=== PATIENT | female | born 1960 | race Caucasian/White ===

== ENCOUNTER 2016-05-24 09:27 | Emergency (ER) | payer MEDICARE ==
[2016-05-24] MEDS ORDERED: Al Hydrox/Mg Hydrox/Simet LIQ* 30 ML UDC PO ONE (10:26)
[2016-05-24] MEDS: NS 0.9% 1000 ML* 2,000 ML IV ONE (10:41)
--- NOTE | 2016-05-24 10:47 | ED ---
Abdominal Pain/Female - HPI Summary HPI Summary: Patient arrives to ED with CC of rectal bleeding, diarrhea and bloating x 3 days. States diarrhea began on after returning home from a trip within [place]. She states she may have eaten some rare hamburger. The next day she noticed the diarrhea had blood mixed with it and this morning states no diarrhea was present but what looked like mucous blood clots were passing. She also states she has been sightly nauseous and dry heaving with 1X episode of vomiting bile yesterday and feels dehydrated. Denies blood thinners. Denies abdominal pain but notes some diffuse cramping. Cramping does not improve or worsen after BM. Cramping does not radiate. Feels generalized weakness. Denies any PMHx of IBD or IBS. Last colonoscopy was normal and next colonoscopy appt is for next year. PMHx of stroke which she has fully recovered. Denies other health problems and exercises regularly. Family hx positive for paternal aunt colon cancer. - History of Current Complaint Chief Complaint: EDAbdPain Stated Complaint: VOMITING/DIARRHEA/ABD CRAMPING Time Seen by Provider: 05/24/16 09:56 Hx Obtained From: Patient ?: No Onset/Duration: Gradual Onset Timing: Intermittent Episode Lasting - several minutes Severity Initially: Moderate Severity Currently: Moderate Pain Intensity: 6 Pain Scale Used: 0-10 Numeric Location: Diffuse - more prominent at RLQ, Discrete At: RLQ Radiates: No Character: Dull, Other: - tenesmus Aggravating Factor(s): Nothing Alleviating Factor(s): Bowel Movement Allergies/Adverse Reactions: Allergies Allergy/AdvReac Type Severity Reaction Status Date / Time SULFA Allergy Facial Uncoded 05/24/16 09:55 Redness/Flushing PMH/Surg Hx/FS Hx/Imm Hx Previously Healthy: Yes - stroke history but fully recovered per patient Infectious Disease History: No Infectious Disease History: Denies: Traveled Outside the [place] in Last 30 Days - Social History Occupation: Employed Full-time Lives: With Family Alcohol Use: None Hx Substance Use: No Substance Use Type: Reports: None Hx Tobacco Use: No Do You Chew or Dip Tobacco: No Have You Chewed or Dipped Tobacco in the LAST YEAR: No Review of Systems Positive: Fatigue Eyes: Negative Cardiovascular: Negative Respiratory: Negative Positive: Abdominal Pain - RLQ more prominent, but diffuse, Diarrhea - bloody Genitourinary: Negative Positive: no symptoms reported, see HPI Musculoskeletal: Negative Skin: Negative Neurological: Negative Psychological: Normal All Other Systems Reviewed And Are Negative: Yes Physical Exam Triage Information Reviewed: Yes Vital Signs On Initial Exam: Initial Vitals Temp Pulse Resp BP Pulse Ox 98.8 F 78 15 113/85 99 05/24/16 09:56 05/24/16 09:56 05/24/16 09:56 05/24/16 09:56 05/24/16 09:56 Vital Signs Reviewed: Yes Appearance: Positive: Well-Appearing, No Pain Distress, Well-Nourished Skin: Positive: Warm, Skin Color Reflects Adequate Perfusion Eyes: Positive: Normal, EOMI Neck: Positive: Supple, Nontender Respiratory/Lung Sounds: Positive: Breath Sounds Present Cardiovascular: Positive: Normal Abdomen Description: Positive: No Organomegaly, Soft, Other: - no cva tenderness , tenderness to deep palpation over RLQ. no fever present. Bowel Sounds: Positive: Present Musculoskeletal: Positive: Normal, Strength/ROM Intact Neurological: Positive: Normal Psychiatric: Positive: Normal Diagnostics - Vital Signs Vital Signs Temp Pulse Resp BP Pulse Ox 05/24/16 09:56 98.8 F 78 15 113/85 99 - Laboratory Result Diagrams: 05/24/16 14:19 05/24/16 10:45 Lab Statement: Any lab studies that have been ordered have been reviewed, and results considered in the medical decision making process. Re-Evaluation - Re-Evaluation First Eval Change: Improved - patient feeling better after fluids Abdominal Pain Fem Course/Dx - Course Course Of Treatment: Labs obtained. Maalox given d/t feeling bloated. Fluids recusitation. Patient unable to provide stool sample, so home kit was given with instructions. Follow up labs showed only a slight drop in H/H, but no more bleeding occurred in 6 hours patient was in ED. Patient feeling better and denies light headedness or dizziness. No CT d/t labwork and recent history of eating rare meat. Patient agrees to follow up with PCP and for colonoscopy. Return precautions for bleeding given. - Diagnoses Differential Diagnosis: Positive: Diverticulitis, Peptic Ulcer Disease Provider Diagnoses: Rectal bleeding Discharge - Discharge Plan Condition: Stable Disposition: HOME Patient Education Materials: Rectal Bleeding (ED) Referrals: No Primary Care Phys,NOPCP [Primary Care Provider] - Additional Instructions: Follow up with your PCP. Drop off stool cultures at the lab. If you notice worsening bleeding, feelings of fatigue or dizziness, come back to ED. Colonoscopy is recommended soon.
[2016-05-24 11:03] LABS: Hematocrit 43 % (35-47); Hemoglobin 14.2 g/dl (12.0-16.0); Mean Corpuscular HGB Conc 33 g/dl (31-36); Mean Corpuscular Hemoglobin 31 pg (27-31); Mean Corpuscular Volume 93 fL (80-97); Mean Platelet Volume 6 um3 (7.4-10.4); Red Blood Count 4.58 10^6/ul (4.0-5.4); Red Cell Distribution Width 14 % (10.5-15); White Blood Count 6.2 10^3/ul (3.5-10.8)
[2016-05-24 11:09] LABS: Urine Bilirubin Negative (Negative); Urine Glucose Negative (Negative); Urine Nitrite Negative (Negative)
[2016-05-24 11:19] LABS: Albumin 4.1 g/dL (3.2-5.2); BUN/Creatinine Ratio 9.4 (8-20); C Reactive Protein 4.35 mg/L (< 5.00); Calcium 9.3 mg/dL (8.6-10.3); Direct Bilirubin 0.1 mg/dL (0.03-0.18); EGFR African American 89.6 (>60); EGFR Non-African American 69.7 (>60); Globulin 2.6 g/dL (2-4); Indirect Bilirubin 0.5 mg/dL (0.3-1.0); Potassium 3.9 mmol/L (3.5-5.0); Total Bilirubin 0.6 mg/dL (0.2-1.0); Total Protein 6.7 g/dL (6.4-8.9)
[2016-05-24 14:27] LABS: Hematocrit 40 % (35-47); Hemoglobin 13.4 g/dl (12.0-16.0); Mean Corpuscular HGB Conc 34 g/dl (31-36); Mean Corpuscular Hemoglobin 31 pg (27-31); Mean Corpuscular Volume 93 fL (80-97); Mean Platelet Volume 6 um3 (7.4-10.4); Red Blood Count 4.27 10^6/ul (4.0-5.4); Red Cell Distribution Width 14 % (10.5-15); White Blood Count 6.7 10^3/ul (3.5-10.8)
[2016-05-24 14:54] VITALS: BP 134/75
== END 2016-05-24 15:20 | disposition home or self-care (01) ==
LOC: ED 09:27
DX: R10.31 Right lower quadrant pain (principal); R19.7 Diarrhea, unspecified; K62.5 Hemorrhage of anus and rectum
CPT/HCPCS: 36415; 80053; 81003; 82248; 83690; 85025; 85610; 85730; 86140; 96360; 99283; A9270-GY

== ENCOUNTER → 2016-08-22 15:33 | Emergency (ER) | payer MEDICARE, MEDICAID ==
[~2016-08-22 15:33] MED LIST: LORazepam INJ* 2 MG/ML 1 ML VIAL IV ONE
[2016-08-22 17:59] LABS: Hematocrit 45 % (35-47); Hemoglobin 15.1 g/dl (12.0-16.0); Mean Corpuscular HGB Conc 33 g/dl (31-36); Mean Corpuscular Hemoglobin 31 pg (27-31); Mean Corpuscular Volume 92 fL (80-97); Mean Platelet Volume 7 um3 (7.4-10.4); Red Blood Count 4.92 10^6/ul (4.0-5.4); Red Cell Distribution Width 13 % (10.5-15)
[2016-08-22 18:01] LABS: Urine Bilirubin Negative (Negative); Urine Glucose Negative (Negative); Urine Nitrite Negative (Negative)
[2016-08-22] MEDS: NS 0.9% 1000 ML* 2,000 ML IV ONE ×2 (18:03→18:04)
[2016-08-22 18:12] LABS: Benzodiazepine Urine Screen None Detected (None Detect)
[2016-08-22 18:13] LABS: ALT 16 U/L (7-52); AST 21 U/L (13-39); Albumin 4.5 g/dL (3.2-5.2); Alkaline Phosphatase 55 U/L (34-104); Anion Gap 9 mmol/L (2-11); BUN/Creatinine Ratio 13.3 (8-20); Blood Urea Nitrogen 11 mg/dL (6-24); CO2 Carbon Dioxide 27 mmol/L (22-32); Calcium 9.5 mg/dL (8.6-10.3); Chloride 104 mmol/L (101-111); Creatine Kinase 74 U/L (10-223); EGFR African American 92.1 (>60); EGFR Non-African American 71.6 (>60); Globulin 2.8 g/dL (2-4); Glucose 83 mg/dL (70-100); Magnesium 2.3 mg/dL (1.9-2.7); Potassium 4.1 mmol/L (3.5-5.0); Sodium 140 mmol/L (133-145); Total Protein 7.3 g/dL (6.4-8.9)
[2016-08-22 18:42] LABS: Acetaminophen < 15 mcg/mL; Alcohol 199 mg/dL (<10); Salicylate < 2.50 mg/dL (<30)
[2016-08-22 18:48] LABS: TSH (Thyroid Stimulating Horm) 0.73 mcIU/mL (0.34-5.60)
--- NOTE | 2016-08-22 18:53 | ED ---
Jose Alberto Madera Auryana, scribed for Shay Hodge MD on 08/22/16 at 1818 . Substance Abuse/Use - HPI Summary HPI Summary: 56 year old female presents with detox request s/p relapse. She reports she was recently sober for 3 months and relapse yesterday due to some increased stress and "didn't use tools". She states that she had 4 bottles of wine and some tequila starting yesterday and into today. She states she did eat today but a while ago. She denies hallucinations or hearing voices. PMHx is significant for depression (no medications), stroke (residual right sided weakness), ETOH abuse- withdrawal in past- rehab x2. She denies any recreational drugs and tobacco use. - History Of Current Complaint Chief Complaint: EDDetoxRequest Stated Complaint: ETOH WITHDRAWL Time Seen by Provider: 08/22/16 16:53 Hx Obtained From: Patient Hx Last Menstrual Period: N/A ?: No Onset/Duration of Drug/ETOH Abuse: Days - YESTERDAY 1 Ingestion History: Type/Name Of Drug - etoh, Amount Ingested - 4 bottles wine and some tequila Overdose Characteristics: Oral Timing Of Abuse: Binge Use Severity Initially: Moderate Severity Currently: Moderate Character: Depressed, Other - upset Aggravating Factor(s): Recent Stress Associated Signs And Symptoms: Intentional Ingestion Related Hx: Recent Stressors, Drug/Alcohol Last Used @ - states [employer] - Allergies/Home Medications Allergies/Adverse Reactions: Allergies Allergy/AdvReac Type Severity Reaction Status Date / Time SULFA Allergy Facial Uncoded 05/24/16 09:55 Redness/Flushing PMH/Surg Hx/FS Hx/Imm Hx Neurological History: Reports: 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 Psychiatric History: Reports: Hx Depression, Hx Substance Abuse - ETOH Infectious Disease History: Yes Infectious Disease History: Denies: Traveled Outside the [place] in Last 30 Days - Social History Occupation: Disabled Lives: Alone Alcohol Use: binge drinking Alcohol Amount: pt relapsed last night,"I've been drinking for 24 hours" Hx Substance Use: No Substance Use Type: Reports: None Hx Tobacco Use: No Smoking Status (MU): Never Smoked Tobacco Review of Systems Positive: Other - alcohol detox . Negative: Fever Eyes: Negative ENT: Negative Cardiovascular: Negative Respiratory: Negative Gastrointestinal: Negative Genitourinary: Negative Musculoskeletal: Negative Skin: Negative Neurological: Negative Psychological: Normal All Other Systems Reviewed And Are Negative: Yes Physical Exam - Summary Physical Exam Summary: The patient is well-nourished in no acute distress and in no acute pain. Does not smell of alcohol. The skin is warm and dry and skin color reflects adequate perfusion. HEENT: The head is normocephalic and atraumatic. The pupils are equal and reactive. The conjunctivae are clear and without drainage. Nares are patent and without drainage. Mouth reveals moist mucous membranes and the throat is without erythema and exudate. The external ears are intact. The ear canals are patent and without drainage. The tympanic membranes are intact. Neck is supple with full range of motion and non-tender. There are no carotid bruits. There is no neck vein distension. Respiratory: Chest is non-tender. Lungs are clear to auscultation and breath sounds are symmetrical and equal. Cardiovascular: Hear is regular rate and rhythm. There is no murmur or rub auscultated. There is no peripheral edema and pulses are symmetrical and equal. Abdomen: The abdomen is soft and non-tender. There are normal bowel sounds heard in all four quadrants and there is no organomegaly palpated. Musculoskeletal: There is no back pain noted. Extremities are non-tender with full range of motion. There is good capillary refill. There is no peripheral edema or calf tenderness elicited. Neurological: Patient is alert and oriented to person, place and time. The patient has symmetrical motor strength in all four extremities. Cranial nerves are grossly intact. Deep tendon reflexes are symmetrical and equal in all four extremities. Psychiatric: The patient has an appropriate affect and does not exhibit any anxiety or depression. Triage Information Reviewed: Yes Vital Signs On Initial Exam: Initial Vitals Temp Pulse Resp BP Pulse Ox 98.3 F 97 20 119/76 97 08/22/16 15:41 08/22/16 15:41 08/22/16 15:41 08/22/16 15:41 08/22/16 15:41 Vital Signs Reviewed: Yes - [place] Coma Scale Coma Scale Total: 15 Diagnostics - Vital Signs Vital Signs Temp Pulse Resp BP Pulse Ox 08/22/16 16:33 98 F 92 20 109/64 95 08/22/16 16:30 83 16 115/70 94 08/22/16 16:22 80 94 08/22/16 16:20 109/64 05/12/17 15:41 98.3 F 97 20 119/76 97 - Laboratory Lab Results: Lab Results 08/22/16 08/22/16 08/22/16 Range/Units 17:45 17:45 17:45 WBC 7.0 (3.5-10.8) 10^3/ul RBC 4.92 (4.0-5.4) 10^6/ul Hgb 15.1 (12.0-16.0) g/dl Hct 45 (35-47) % MCV 92 (80-97) fL MCH 31 (27-31) pg MCHC 33 (31-36) g/dl RDW 13 (10.5-15) % Plt Count 377 (150-450) 10^3/ul MPV 7 L (7.4-10.4) um3 Neut % (Auto) 37.8 L (38-83) % Lymph % (Auto) 48.3 H (25-47) % [place] % (Auto) 7.8 (1-9) % Eos % (Auto) 5.1 (0-6) % Baso % (Auto) 1.0 (0-2) % Absolute Neuts (auto) 2.6 (1.5-7.7) 10^3/ul Absolute Lymphs (auto) 3.4 (1.0-4.8) 10^3/ul Absolute Monos (auto) 0.5 (0-0.8) 10^3/ul Absolute Eos (auto) 0.4 (0-0.6) 10^3/ul Absolute Basos (auto) 0.1 (0-0.2) 10^3/ul Absolute Nucleated RBC 0.01 10^3/ul Nucleated RBC % 0.2 Sodium 140 (133-145) mmol/L Potassium 4.1 (3.5-5.0) mmol/L Chloride 104 (101-111) mmol/L Carbon Dioxide 27 (22-32) mmol/L Anion Gap 9 (2-11) mmol/L BUN 11 (6-24) mg/dL Creatinine 0.83 (0.51-0.95) mg/dL Est GFR ( Amer) 92.1 (>60) Est GFR (Non-Af Amer) 71.6 (>60) BUN/Creatinine Ratio 13.3 (8-20) Glucose 83 (70-100) mg/dL Lactic Acid (0.5-2.0) mmol/L Calcium 9.5 (8.6-10.3) mg/dL Magnesium 2.3 (1.9-2.7) mg/dL Total Bilirubin 0.30 (0.2-1.0) mg/dL AST 21 (13-39) U/L ALT 16 (7-52) U/L Alkaline Phosphatase 55 (34-104) U/L Total Creatine Kinase 74 (10-223) U/L Total Protein 7.3 (6.4-8.9) g/dL Albumin 4.5 (3.2-5.2) g/dL Globulin 2.8 (2-4) g/dL Albumin/Globulin Ratio 1.6 (1-3) TSH 0.73 (0.34-5.60) mcIU/mL Urine Color Straw Urine Appearance Clear Urine pH 6.0 (5-9) Ur Specific [place] 1.005 L (1.010-1.030) Urine Protein Negative (Negative) Urine Ketones Negative (Negative) Urine Blood Negative (Negative) Urine Nitrate Negative (Negative) Urine Bilirubin Negative (Negative) Urine Urobilinogen Negative (Negative) Ur Leukocyte Esterase Negative (Negative) Urine Glucose Negative (Negative) Salicylates < 2.50 (<30) mg/dL Urine Opiates Screen (None Detect) Acetaminophen < 15 mcg/mL Ur Barbiturates Screen (None Detect) Ur Phencyclidine Scrn (None Detect) Ur Amphetamines Screen (None Detect) U Benzodiazepines Scrn (None Detect) Urine Cocaine Screen (None Detect) U Cannabinoids Screen (None Detect) Serum Alcohol 199 H (<10) mg/dL 08/22/16 08/22/16 Range/Units 17:45 17:45 WBC (3.5-10.8) 10^3/ul RBC (4.0-5.4) 10^6/ul Hgb (12.0-16.0) g/dl Hct (35-47) % MCV (80-97) fL MCH (27-31) pg MCHC (31-36) g/dl RDW (10.5-15) % Plt Count (150-450) 10^3/ul MPV (7.4-10.4) um3 Neut % (Auto) (38-83) % Lymph % (Auto) (25-47) % [place] % (Auto) (1-9) % Eos % (Auto) (0-6) % Baso % (Auto) (0-2) % Absolute Neuts (auto) (1.5-7.7) 10^3/ul Absolute Lymphs (auto) (1.0-4.8) 10^3/ul Absolute Monos (auto) (0-0.8) 10^3/ul Absolute Eos (auto) (0-0.6) 10^3/ul Absolute Basos (auto) (0-0.2) 10^3/ul Absolute Nucleated RBC 10^3/ul Nucleated RBC % Sodium (133-145) mmol/L Potassium (3.5-5.0) mmol/L Chloride (101-111) mmol/L Carbon Dioxide (22-32) mmol/L Anion Gap (2-11) mmol/L BUN (6-24) mg/dL Creatinine (0.51-0.95) mg/dL Est GFR ( Amer) (>60) Est GFR (Non-Af Amer) (>60) BUN/Creatinine Ratio (8-20) Glucose (70-100) mg/dL Lactic Acid 1.2 (0.5-2.0) mmol/L Calcium (8.6-10.3) mg/dL Magnesium (1.9-2.7) mg/dL Total Bilirubin (0.2-1.0) mg/dL AST (13-39) U/L ALT (7-52) U/L Alkaline Phosphatase (34-104) U/L Total Creatine Kinase (10-223) U/L Total Protein (6.4-8.9) g/dL Albumin (3.2-5.2) g/dL Globulin (2-4) g/dL Albumin/Globulin Ratio (1-3) TSH (0.34-5.60) mcIU/mL Urine Color Urine Appearance Urine pH (5-9) Ur Specific [place] (1.010-1.030) Urine Protein (Negative) Urine Ketones (Negative) Urine Blood (Negative) Urine Nitrate (Negative) Urine Bilirubin (Negative) Urine Urobilinogen (Negative) Ur Leukocyte Esterase (Negative) Urine Glucose (Negative) Salicylates (<30) mg/dL Urine Opiates Screen None detected (None Detect) Acetaminophen mcg/mL Ur Barbiturates Screen None detected (None Detect) Ur Phencyclidine Scrn None detected (None Detect) Ur Amphetamines Screen None detected (None Detect) U Benzodiazepines Scrn None detected (None Detect) Urine Cocaine Screen None detected (None Detect) U Cannabinoids Screen None detected (None Detect) Serum Alcohol (<10) mg/dL Result Diagrams: 08/22/16 17:45 08/22/16 17:45 Lab Statement: Any lab studies that have been ordered have been reviewed, and results considered in the medical decision making process. Course/Dx - Course Assessment/Plan: 56 year old female presents with detox request s/p relapse. She reports she was recently sober for 3 months and relapse yesterday due to some increased stress and "didn't use tools". She states that she had 4 bottles of wine and some tequila starting yesterday and into today. She denies hallucinations or hearing voices. PMHx is significant for depression (no medications), stroke (residual right sided weakness), ETOH abuse-withdrawal in past- rehab x2. LABS - UNREMARKABLE. SERUM ETOH - 199. WILL SIGN OUT FROM DR. HODGE TO DR. SELBY AT 19:00. DX: ACUTE ETOH INTOXICATION - Diagnoses Differential Diagnosis/HQI/PQRI: Positive: Alcohol Abuse, Alcohol Withdrawal, Depression, Metabolic Disorder Provider Diagnoses: Acute alcohol intoxication Discharge - Discharge Plan Condition: Stable Disposition: HOME Discharge Disposition Comment: SIGNOUT FROM DR. HODGE TO DR. SELBY AT 19:00 Patient Education Materials: Alcohol Intoxication (ED) Referrals: Jesús Ngo MD [Primary Care Provider] - 3 Days [facility] [Outside] [facility] [Outside] The documentation as recorded by the Jose Alberto calderon Auryana accurately reflects the service I personally performed and the decisions made by me, Shay Hodge MD.
[2016-08-22 23:14] VITALS: BP 109/67
== END | disposition home or self-care (01) ==
LOC: ED 15:33
DX: F10.129 Alcohol abuse with intoxication, unspecified (principal); Y90.6 Blood alcohol level of 120-199 mg/100 ml; Z88.2 Allergy status to sulfonamides
CPT/HCPCS: 36415; 80053; 80307; 80320; 80329; 81003; 82550; 83605; 83735; 84443; 85025; 96360; 96374; 99283; G0480; J2060

== ENCOUNTER 2017-06-13 20:43 | Emergency (ER) | payer MEDICARE, MEDICAID ==
[2017-06-13] MEDS ORDERED: Ondansetron INJ* 2 MG/ML VIAL IV ONE (21:21)
[2017-06-13] MEDS ORDERED: Famotidine TAB* 20 MG PO ONE (21:21)
[2017-06-13 22:11] LABS: ABS Basophils 0.1 10^3/ul (0-0.2); ABS Eosinophils 0.1 10^3/ul (0-0.6); ABS Lymphocytes 1.9 10^3/ul (1.0-4.8); ABS Monocytes 0.4 10^3/ul (0-0.8); ABS Neutrophils 2.7 10^3/ul (1.5-7.7); ABS Nucleated RBC 0 10^3/ul; Eosinophil % 1.8 % (0-6); Hematocrit 45 % (35-47); Hemoglobin 14.7 g/dl (12.0-16.0); Lymphocyte % 37.4 % (25-47); Mean Corpuscular HGB Conc 33 g/dl (31-36); Mean Corpuscular Hemoglobin 30 pg (27-31); Mean Corpuscular Volume 92 fL (80-97); Mean Platelet Volume 6 um3 (7.4-10.4); Nucleated Red Blood Cells % 0.1; Platelet Count 323 10^3/ul (150-450); Red Blood Count 4.84 10^6/ul (4.0-5.4); Red Cell Distribution Width 14 % (10.5-15); White Blood Count 5.2 10^3/ul (3.5-10.8)
[2017-06-13 22:15] LABS: EGFR Non-African American 66.7 (>60)
[2017-06-14 04:38] VITALS: BP 108/64
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
== END 2017-06-14 04:29 | disposition home or self-care (01) ==
LOC: ED 20:43
DX: F10.229 Alcohol dependence with intoxication, unspecified (principal); Y90.8 Blood alcohol level of 240 mg/100 ml or more; R11.0 Nausea
CPT/HCPCS: 36415; 80053; 80320; 85025; 96374; 99282; G0480

== ENCOUNTER 2017-12-27 18:45 | Emergency (ER) | payer MEDICARE, MEDICAID ==
[2017-12-27 18:54] VITALS: BP 118/78
--- NOTE | 2017-12-27 19:13 | ED ---
Substance Abuse/Use - HPI Summary HPI Summary: This patient is a 57 year old F presenting to [facility] requesting etoh detox. Pt states she recently relapsed after 6 months of sobriety and has drank just minutes before arriving to the ED. Pt states she is an alcoholic and she is unable to stop drinking and has been in the ED before. Pt states that when the alcohol has left her system she needs to drink more so she is drinking every couple hours. She has been drinking every day for the last month and states she is unable to cope with her feelings. When she stops drinking she becomes agitated and confused. Pt states her last drink was a 9% alcoholic beer and it was at 1800. Hx CVA in 2011. She takes gabapentin and 325 ASA. - History Of Current Complaint Chief Complaint: EDDetoxRequest Stated Complaint: DETOX REQUEST Hx Obtained From: Patient Hx Last Menstrual Period: N/A Onset/Duration of Drug/ETOH Abuse: Minutes Ingestion History: Type/Name Of Drug - etoh Overdose Characteristics: Oral Timing Of Abuse: Recent Cessation For A Period Of Severity Initially: Moderate Severity Currently: Moderate Aggravating Factor(s): Other Associated Signs And Symptoms: Negative - fever - Allergies/Home Medications Allergies/Adverse Reactions: Allergies Allergy/AdvReac Type Severity Reaction Status Date / Time SULFA Allergy Facial Uncoded 12/27/17 18:54 Redness/Flushing Home Medications: Home Medications NK [No Home Medications Reported] 12/27/17 [History Confirmed 12/27/17] PMH/Surg Hx/FS Hx/Imm Hx Endocrine/Hematology History: Denies: Hx Diabetes Cardiovascular History: Denies: Hx Hypertension, Hx Pacemaker/ICD Respiratory History: Denies: Hx Asthma Musculoskeletal History: Denies: Hx Osteoporosis Sensory History: Denies: Hx Hearing Aid Neurological History: Reports: Hx CVA, 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 Psychiatric History: Reports: Hx Depression, Hx Substance Abuse - ETOH Denies: Hx Panic Disorder - Surgical History Surgery Procedure, Year, and Place: TONSILLECTOMY AND ADENOIDECTOMY Infectious Disease History: No Infectious Disease History: Denies: Traveled Outside the [place] in Last 30 Days - Family History Known Family History: Positive: Other Family History: No breast CA - Social History Alcohol Use: Daily Alcohol Amount: pt relapsed last night,"I've been drinking for 24 hours" Hx Substance Use: No Substance Use Type: Reports: None Hx Tobacco Use: No Smoking Status (MU): Never Smoked Tobacco Review of Systems Positive: Other - Intoxicated. Negative: Fever Positive: Other - agitated and confused when she stops drinking All Other Systems Reviewed And Are Negative: Yes Physical Exam - Summary Physical Exam Summary: Appearance: Well-appearing, Well-nourished, lying in bed comfortably Skin: Warm, dry, no obvious rash Eyes: sclera anicteric, no conjunctival pallor ENT: mucous membranes moist, pharynx appears normal Neck: Supple, nontender Respiratory: Clear to auscultation, no signs of respiratory distress Cardiovascular: Normal S1, S2. No murmurs. Normal distal pulses in tibial and radial bilaterally. Abdomen: Soft, nontender, normal active bowel sounds present Musculoskeletal: Normal, Strength/ROM Intact Neurological: A&Ox3, awake and alert, mentation is normal, speech is fluent and appropriate Psychiatric: affect is normal, does not appear anxious or depressed Triage Information Reviewed: Yes Vital Signs On Initial Exam: Initial Vitals Temp Pulse Resp BP Pulse Ox 98.5 F 80 16 118/78 94 12/27/17 18:53 12/27/17 18:53 12/27/17 18:53 12/27/17 18:53 12/27/17 18:53 Vital Signs Reviewed: Yes Diagnostics - Vital Signs Vital Signs Temp Pulse Resp BP Pulse Ox 12/27/17 18:53 98.5 F 80 16 118/78 94 - Laboratory Result Diagrams: 12/27/17 19:13 12/27/17 19:13 Lab Statement: Any lab studies that have been ordered have been reviewed, and results considered in the medical decision making process. Re-Evaluation - Re-Evaluation First Eval Re-Evaluation Time: 01:35 Change: Unchanged Comment: As the patient was about to be discharged it became apparent that she has eloped Course/Dx - Course Assessment/Plan: This patient is a 57 year old F presenting to [facility] requesting etoh detox. Pt states she recently relapsed after 6 months of sobriety and has drank just minutes before arriving to the ED. Pt states she is an alcoholic and she is unable to stop drinking and has been in the ED before. Pt states that when the alcohol has left her system she needs to drink more so she is drinking every couple hours. She has been drinking every day for the last month and states she is unable to cope with her feelings. When she stops drinking she becomes agitated and confused. Pt states her last drink was a 9% alcoholic beer and it was at 1800. Hx CVA in 2012. She takes gabapentin and 325 ASA. Blood work obtained, patient had a JENN of 200. Pt eloped from the ED - Diagnoses Provider Diagnoses: Eloped from emergency department Discharge - Sign-Out/Discharge Documenting (check all that apply): Patient Departure - eloped - Discharge Plan Disposition: ELOPEMENT Patient Education Materials: Abuse of Alcohol (ED) Referrals: Jesús Ngo MD [Primary Care Provider] - - Attestation Statements Document Initiated by Scribe: Yes Documenting Scribe: Loki Monteiro Provider For Whom Scribe is Documenting (Include Credential): Joselito Kinsey MD Scribe Attestation: Loki Madera , scribed for Joselito Kinsey MD on 12/28/17 at 0250.
[2017-12-27 19:21] LABS: ABS Basophils 0.1 10^3/ul (0-0.2); ABS Eosinophils 0.3 10^3/ul (0-0.6); ABS Lymphocytes 2.9 10^3/ul (1.0-4.8); ABS Monocytes 0.6 10^3/ul (0-0.8); ABS Neutrophils 3.2 10^3/ul (1.5-7.7); ABS Nucleated RBC 0 10^3/ul; Eosinophil % 3.8 % (0-6); Hematocrit 41 % (35-47); Hemoglobin 14.4 g/dl (12.0-16.0); Lymphocyte % 40.6 % (25-47); Mean Corpuscular HGB Conc 35 g/dl (31-36); Mean Corpuscular Hemoglobin 32 pg (27-31); Mean Corpuscular Volume 92 fL (80-97); Mean Platelet Volume 5.7 um3 (7.4-10.4); Nucleated Red Blood Cells % 0.1; Platelet Count 381 10^3/ul (150-450); Red Blood Count 4.46 10^6/ul (4.00-5.40); Red Cell Distribution Width 14 % (10.5-15); White Blood Count 7.1 10^3/ul (3.5-10.8)
[2017-12-27 19:24] LABS: Urine Appearance Clear; Urine Blood Negative (Negative); Urine Color Straw; Urine Ketones Negative (Negative); Urine Protein Negative (Negative); Urine Specific Gravity 1.005 (1.010-1.030); Urine Urobilinogen Negative (Negative)
[2017-12-27 19:37] LABS: EGFR Non-African American 60.3 (>60)
== END 2017-12-28 01:13 | disposition left against medical advice (07) ==
LOC: ED 18:45
DX: F10.20 Alcohol dependence, uncomplicated (principal); Z53.21 Procedure and treatment not carried out due to patient leaving prior to being seen by health care provider; Z86.73 Personal history of transient ischemic attack (TIA), and cerebral infarction without residual deficits; Z79.899 Other long term (current) drug therapy; Z79.82 Long term (current) use of aspirin; Z88.3 Allergy status to other anti-infective agents
CPT/HCPCS: 36415; 80053; 80307; 80320; 81003; 84443; 85025; 99283; G0480

== ENCOUNTER → 2018-07-08 14:58 | Emergency (ER) | payer MEDICARE, MEDICAID ==
--- NOTE | 2018-07-08 17:11 | ED ---
Substance Abuse/Use - HPI Summary HPI Summary: This pt is a 58 y/[facility] [place] [facility] for the past couple of days. Pt reports she has been a chronic alcoholic for years but has been drinking even more for the past 6 days now. She states "I don't now how to stop. It's a cycle and it's hard to stop." She last drank alcohol today, approx 8 beers. Pt usually drinks 10-12 drinks a day or 2 big bottles of wine until she passes out. Pt states she has been taking Advil for her headache but has also been drinking alcohol. Denies fever, chest pain, abd pain, SOB. Denies SI or HI. PMHx stroke in 2012 with deficit of right sided weakness. Pt states she is afraid something "physical" will happen to her again. She reports feeling anxious currently. - History Of Current Complaint Chief Complaint: EDPsychosocial Stated Complaint: ALCOHOLIC CANT STOP DRINKING/MAJOR HEADACHE RT CARLOS Time Seen by Provider: 07/08/18 16:52 Hx Obtained From: Patient Hx Last Menstrual Period: N/A Onset/Duration of Drug/ETOH Abuse: Increased Since: - 6 days ago Overdose Characteristics: Oral Timing Of Abuse: Daily Severity Currently: Moderate Character: Anxious Aggravating Factor(s): Nothing Alleviating Factor(s): Nothing Associated Signs And Symptoms: Intentional Ingestion, Other: - POSITIVE: headache. NEGATIVE: fever, chest pain, abd pain, SOB Related Hx: Drug/Alcohol Last Used @ - last alcoholic drink today - Allergies/Home Medications Allergies/Adverse Reactions: Allergies Allergy/AdvReac Type Severity Reaction Status Date / Time SULFA Allergy Facial Uncoded 12/27/17 18:54 Redness/Flushing PMH/Surg Hx/FS Hx/Imm Hx Endocrine/Hematology History: Denies: Hx Diabetes Cardiovascular History: Denies: Hx Hypertension, Hx Pacemaker/ICD Respiratory History: Denies: Hx Asthma Musculoskeletal History: Denies: Hx Osteoporosis Sensory History: Denies: Hx Hearing Aid Neurological History: Reports: Hx CVA, 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 Psychiatric History: Reports: Hx Depression, Hx Substance Abuse - ETOH Denies: Hx Panic Disorder - Surgical History Surgery Procedure, Year, and Place: TONSILLECTOMY AND ADENOIDECTOMY Infectious Disease History: No Infectious Disease History: Denies: Traveled Outside the [place] in Last 30 Days - Family History Known Family History: Positive: Other Family History: No breast CA - Social History Alcohol Use: Daily Alcohol Amount: pt relapsed last night,"I've been drinking for 24 hours" Hx Substance Use: No Substance Use Type: Reports: None Hx Tobacco Use: No Smoking Status (MU): Never Smoked Tobacco Review of Systems Negative: Fever Negative: Chest Pain Negative: Shortness Of Breath Negative: Abdominal Pain Positive: Headache Positive: Anxious. Negative: Other - NEG: SI or HI All Other Systems Reviewed And Are Negative: Yes Physical Exam - Summary Physical Exam Summary: Appearance: Well appearing, no pain distress Skin: warm, dry, reflects adequate perfusion Head/face: normal Eyes: EOMI, HARLAN ENT: normal Neck: supple, non-tender Respiratory: CTA, breath sounds present Cardiovascular: RRR, pulses symmetrical Abdomen: non-tender, soft Musculoskeletal: normal, strength/ROM intact Neuro: normal, sensory motor intact, A&Ox3 Triage Information Reviewed: Yes Vital Signs On Initial Exam: Initial Vitals Temp Pulse Resp BP Pulse Ox 97.8 F 76 18 148/103 96 07/08/18 15:08 07/08/18 15:08 07/08/18 15:08 07/08/18 15:08 07/08/18 15:08 Vital Signs Reviewed: Yes Diagnostics - Vital Signs Vital Signs Temp Pulse Resp BP Pulse Ox 07/08/18 15:08 97.8 F 76 18 148/103 96 - Laboratory Result Diagrams: 07/08/18 17:35 07/08/18 17:35 Lab Statement: Any lab studies that have been ordered have been reviewed, and results considered in the medical decision making process. Re-Evaluation - Re-Evaluation First Eval Re-Evaluation Time: 18:32 Comment: Pt is requesting to leave against medical advice. She denies SI or HI. Course/Dx - Course Assessment/Plan: Pt is a 58 y/o female, with hx of stroke, who presents with headache for the past couple of days. Pt reports she has been a chronic alcoholic for years but has been drinking even more for the past 6 days now. Blood work, urinalysis, toxicology were obtained. Serum alcohol of 189. She denies any SI or HI. Pt is requesting to leave against medical advice. She understands the risks and benefits of leaving AMA. pt is sober. Pt signed the AMA form. She was instructed to return to the ED for any worsening or new symptoms. - Diagnoses Differential Diagnosis/HQI/PQRI: Positive: Alcohol Abuse, Anxiety Provider Diagnoses: Alcohol intoxication, Anxiety Discharge - Sign-Out/Discharge Documenting (check all that apply): Patient Departure - AMA Patient Received Moderate/Deep Sedation with Procedure: No - Discharge Plan Condition: Stable Disposition: AGAINST MEDICAL ADVICE Referrals: Jesús Ngo MD [Primary Care Provider] - - Billing Disposition and Condition Condition: STABLE Disposition: Against Medical Advice - Attestation Statements Document Initiated by Scribe: Yes Documenting Scribe: Bev Shin Provider For Whom Scribe is Documenting (Include Credential): Willi Villareal MD Scribe Attestation: Bev Madera scribed for Willi Villareal MD on 07/08/18 at 1843. Scribe Documentation Reviewed: Yes Provider Attestation: The documentation as recorded by the Bev calderon accurately reflects the service I personally performed and the decisions made by Willi shaffer MD Status of Scribe Document: Viewed
[2018-07-08 17:43] LABS: ABS Basophils 0 10^3/ul (0-0.2); ABS Eosinophils 0.2 10^3/ul (0-0.6); ABS Lymphocytes 2.4 10^3/ul (1.0-4.8); ABS Monocytes 0.5 10^3/ul (0-0.8); ABS Neutrophils 2.9 10^3/ul (1.5-7.7); ABS Nucleated RBC 0 10^3/ul; Eosinophil % 3.2 %; Hematocrit 41 % (33-41); Hemoglobin 13.9 g/dL (12.0-16.0); Lymphocyte % 40.5 %; Mean Corpuscular HGB Conc 34 g/dL (31-36); Mean Corpuscular Hemoglobin 31 pg (27-31); Mean Corpuscular Volume 91 fL (80-97); Mean Platelet Volume 5.8 fL (7.4-10.4); Nucleated Red Blood Cells % 0; Platelet Count 336 10^3/uL (150-450); Red Blood Count 4.46 10^6 /uL (3.70-4.87); Red Cell Distribution Width 14 % (10.5-15)
[2018-07-08 17:50] LABS: Urine Appearance Clear; Urine Bilirubin Negative (Negative); Urine Blood Negative (Negative); Urine Color Straw; Urine Glucose Negative (Negative); Urine Ketones Negative (Negative); Urine Nitrite Negative (Negative); Urine Protein Negative (Negative); Urine Specific Gravity 1.003 (1.010-1.030); Urine Urobilinogen Negative (Negative)
[2018-07-08 18:01] LABS: ALT 14 U/L (7-52); AST 22 U/L (13-39); Albumin 4.3 g/dL (3.2-5.2); Albumin/Globulin Ratio 1.7 (1-3); Alkaline Phosphatase 47 U/L (34-104); Anion Gap 4 mmol/L (2-11); BUN/Creatinine Ratio 15.4 (8-20); Blood Urea Nitrogen 12 mg/dL (6-24); CO2 Carbon Dioxide 29 mmol/L (22-32); Chloride 101 mmol/L (101-111); EGFR African American 92.4 (>60); EGFR Non-African American 76.4 (>60); Globulin 2.5 g/dL (2-4); Glucose 53 mg/dL (70-100); Potassium 3.6 mmol/L (3.5-5.0); Sodium 134 mmol/L (135-145); Total Protein 6.8 g/dL (6.4-8.9)
[2018-07-08 18:03] LABS: Barbiturates Urine Screen None Detected (None Detect); Benzodiazepine Urine Screen None Detected (None Detect); Urine Cannabinoids Screen None Detected (None Detect)
[2018-07-08 18:14] LABS: Acetaminophen < 15 mcg/mL; Alcohol 189 mg/dL (<10); Salicylate < 2.50 mg/dL (<30)
[2018-07-08 18:28] LABS: TSH (Thyroid Stimulating Horm) 2.66 mcIU/mL (0.34-5.60)
[2018-07-08 18:39] VITALS: BP 142/92
== END | disposition left against medical advice (07) ==
LOC: ED 14:58
DX: F10.129 Alcohol abuse with intoxication, unspecified (principal); Y90.6 Blood alcohol level of 120-199 mg/100 ml; F41.9 Anxiety disorder, unspecified; Z88.2 Allergy status to sulfonamides; Z53.21 Procedure and treatment not carried out due to patient leaving prior to being seen by health care provider
CPT/HCPCS: 36415; 80053; 80307; 80320; 80329; 81003; 84443; 85025; 99282; G0480

== ENCOUNTER 2019-03-31 05:47 | Emergency (ER) | payer MEDICARE, MEDICAID ==
--- NOTE | 2019-03-31 06:28 | ED ---
Influenza-Like Illness - HPI Summary HPI Summary: 58-year-old presents with sinus congestion and headache today. She states it started with a headache yesterday. not worst headache of life. states that it feels like a sinus headache. States she has not had any known fevers. she denies any neck pain or stiffness. She admits to some shortness of breath and a cough. She admits to a sore throat. She denies nausea. No vomiting. No abd pain. she took some advil. She states that she's been coughing all night and has been unable to sleep. She has no medical conditions. No one else is sick. Has decreased appetite. She states that symptoms hit her very quickly. She admits to chills. She is here from out of town. - History of Current Complaint Chief Complaint: EDHeadache Time Seen by Provider: 03/31/19 06:00 - Allergy/Home Medications Allergies/Adverse Reactions: Allergies Allergy/AdvReac Type Severity Reaction Status Date / Time Sulfa (Sulfonamide Allergy Facial Verified 03/31/19 06:03 Antibiotics) Redness/Flushing SULFA Allergy Facial Uncoded 12/27/17 18:54 Redness/Flushing Home Medications: Home Medications Aspirin 81 mg PO DAILY 03/31/19 [History Confirmed 03/31/19] Conjugated Estrogens VAG CM* [Premarin VAG CREAM*] 1 applic VAGINAL BID [History Confirmed 03/31/19] Gabapentin CAP(*) [Neurontin 100 mg CAP(*)] 100 mg PO BID 03/31/19 [History Confirmed 03/31/19] hydrOXYzine HCL TAB* [Atarax 25 MG TAB*] 25 mg PO BEDTIME 03/31/19 [History Confirmed 03/31/19] PMH/Surg Hx/FS Hx/Imm Hx Endocrine/Hematology History: Denies: Hx Diabetes Cardiovascular History: Denies: Hx Hypertension, Hx Pacemaker/ICD Respiratory History: Denies: Hx Asthma Musculoskeletal History: Denies: Hx Osteoporosis Sensory History: Denies: Hx Hearing Aid Neurological History: Reports: Hx CVA, 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 Psychiatric History: Reports: Hx Depression, Hx Substance Abuse - ETOH Denies: Hx Panic Disorder - Surgical History Surgery Procedure, Year, and Place: TONSILLECTOMY AND ADENOIDECTOMY - Immunization History Date of Influenza Vaccine: Not UTD Infectious Disease History: No Infectious Disease History: Denies: Traveled Outside the [place] in Last 30 Days - Family History Known Family History: Positive: Other Family History: No breast CA - Social History Alcohol Use: None Alcohol Amount: pt relapsed last night,"I've been drinking for 24 hours" Hx Substance Use: No Substance Use Type: Reports: None Hx Tobacco Use: No Smoking Status (MU): Never Smoked Tobacco Review of Systems Negative: Fever Positive: Sore Throat, Nasal Discharge Negative: Chest Pain Positive: Shortness Of Breath, Cough All Other Systems Reviewed And Are Negative: Yes Physical Exam Triage Information Reviewed: Yes Vital Signs On Initial Exam: Initial Vitals Temp Pulse Resp BP Pulse Ox 97.6 F 92 16 126/77 95 03/31/19 05:49 03/31/19 05:49 03/31/19 05:49 03/31/19 05:49 03/31/19 05:49 Vital Signs Reviewed: Yes Appearance: Positive: Well-Appearing Skin: Positive: Warm, Dry Head/Face: Positive: Normal Head/Face Inspection Eyes: Positive: Normal, EOMI, HARLAN, Conjunctiva Clear ENT: Positive: Pharyngeal erythema, Nasal congestion, TMs normal, Sinus tenderness, Uvula midline, Other - soft palate symmetric. Negative: Tonsillar swelling, Tonsillar exudate, Trismus, Muffled voice Neck: Positive: Supple, Nontender, No Lymphadenopathy. Negative: Nuchal Rigidity Respiratory/Lung Sounds: Positive: Clear to Auscultation, Breath Sounds Present Cardiovascular: Positive: Normal, RRR Abdomen Description: Positive: Nontender, Soft Bowel Sounds: Positive: Present Musculoskeletal: Positive: Normal Neurological: Positive: Sensory/Motor Intact, Alert, Oriented to Person Place, Time, CN Intact II-III Psychiatric: Positive: Normal - Branch Coma Scale Best Eye Response: 4 - Spontaneous Best Motor Response: 6 - Obeys Commands Best Verbal Response: 5 - Oriented Coma Scale Total: 15 Procedures - Sedation Patient Received Moderate/Deep Sedation with Procedure: No Diagnostics - Vital Signs Vital Signs Temp Pulse Resp BP Pulse Ox 03/31/19 05:49 97.6 F 92 16 126/77 95 - Laboratory Lab Statement: Any lab studies that have been ordered have been reviewed, and results considered in the medical decision making process. - Radiology chest Radiology Interpretation Completed By: ED Physician Summary of Radiographic Findings: no active disease Flu Symptom Course/Dx - Course Course Of Treatment: 58-year-old presents with sinus congestion and headache today. She states it started with a headache yesterday. not worst headache of life. states that it feels like a sinus headache. States she has not had any known fevers. she denies any neck pain or stiffness. She admits to some shortness of breath and a cough. She admits to a sore throat. She denies nausea. No vomiting. No abd pain. she took some advil. She states that she's been coughing all night and has been unable to sleep. She has no medical conditions. No one else is sick. Has decreased appetite. On exam appears comfortable. Normal neuro exam. Pharynx erythematous. Uvula midline. Lungs clear auscultation. Chest x-ray shows no pneumonia. flu positive. will treat with tamiflu. patient understand and agrees with plan. - Diagnoses Differential Diagnosis/HQI/PQRI: Positive: Influenza, Pneumonia, Upper Respiratory Infection Provider Diagnoses: Influenza A Discharge ED - Sign-Out/Discharge Documenting (check all that apply): Patient Departure - Discharge Plan Condition: Good Disposition: HOME Prescriptions: Oseltamivir CAP* [Tamiflu CAP*] 75 mg PO BID #9 cap Patient Education Materials: Influenza (ED) Referrals: Jesús Ngo MD [Primary Care Provider] - Additional Instructions: Take Tamiflu twice for 5 days first dose given in ED Take Tylenol and ibuprofen for muscle aches and fever every 6 hours Saline rinse can be used multiple times a day for nasal congestion Drink plenty of fluids Follow up with primary within 5 days Return to ED if develop any new or worsening symptoms - Billing Disposition and Condition Condition: GOOD Disposition: Home
[2019-03-31] MEDS: Ketorolac INJ* 30 MG/ML 1 ML VIAL IM ONE (06:30)
[2019-03-31 06:39] LABS: Influenza A Molecular POSITIVE (Negative)
[2019-03-31] MEDS: Oseltamivir CAP* 75 MG CAP PO ONE (07:24)
[2019-03-31 07:31] VITALS: BP 106/82
== END 2019-03-31 07:20 | disposition home or self-care (01) ==
LOC: ED 05:47
DX: J09.X2 Influenza due to identified novel influenza A virus with other respiratory manifestations (principal); I69.959 Hemiplegia and hemiparesis following unspecified cerebrovascular disease affecting unspecified side; Z79.82 Long term (current) use of aspirin; Z79.899 Other long term (current) drug therapy; Z88.2 Allergy status to sulfonamides
CPT/HCPCS: 71046; 96372; 99283; A9270-GY; J1885